=== PATIENT | female | born 2000 | race Caucasian/White ===

== ENCOUNTER 2023-05-15 11:36 | Emergency (ER) | payer SELFPAY ==
[2023-05-15] MEDS ORDERED: Sucralfate Suspension 1 GM/10 ML Cup PO ONE (11:55)
== END 2023-05-15 14:24 | disposition home or self-care (01) ==
LOC: MW.ED 11:36
DX: T18.9XXA Foreign body of alimentary tract, part unspecified, initial encounter (principal)
CPT/HCPCS: 70360; 99283; A9270; 99282